=== PATIENT | female | born 1950 | race Caucasian/White ===

== ENCOUNTER 2020-05-29 12:29 | Inpatient (IN) | payer MEDICARE ==
[~2020-05-29] VITALS: Ht 177.8 cm; Wt 114.0 kg
[2020-05-29 13:25] LABS: Source, Urine Catheter
[2020-05-29 13:31] LABS: Appearance, Urine Clear (Clear); Blood, Urine 5+ (Neg); Color, Urine Yellow (P-Yellow); Glucose Qualitative, Urine Neg (Neg); Ketones, Urine 1+ (Neg); Leukocyte Esterase, Urine 1+ (Neg); Nitrite, Urine Neg (Neg); Protein, Urine 2+ (Neg); Specific Gravity, Urine 1.025 (1.003-1.022); Urobilinogen, Urine 1+ (Normal)
[2020-05-29 13:34] LABS: PCO2 Arterial 46.6 mmHg (35-45); PO2 Arterial 58.3 mmHg (80-100); pH Blood Arterial 7.33 (7.35-7.45)
[2020-05-29 13:37] LABS: Magnesium, Blood 3.4 mg/dL (1.6-2.4); Salicylate <1.7 mg/dL (2.8-20.0); Troponin I <0.015 ng/mL (0.000-0.040)
[2020-05-29 13:41] LABS: Alanine Aminotransfer (ALT/SGP 92 U/L (12-78); Albumin, Blood 3.1 g/dL (3.4-5.0); Albumin/Globulin Ratio 0.7 (0.8-1.8); Alk Phos 137 U/L (50-136); Anion Gap 10 mmol/L (6-16); Aspartate Aminotrans (AST/SGOT 329 U/L (12-37); Bilirubin, Total 0.8 mg/dL (0.1-1.0); Blood Urea Nitrogen 46 mg/dL (8-24); Bun/Creatinine Ratio 16.5 (12.0-20.0); CO2, Blood 20 mmol/L (21-32); Calcium, Blood 8.4 mg/dL (8.5-10.1); Chloride, Blood 100 mmol/L (98-108); Creatinine, Blood 2.78 mg/dL (0.40-1.00); Globulin, Blood 4.4 g/dL (2.2-4.0); Glomerular Filtration Rate 18 (60-); Glucose, Blood 121 mg/dL (70-99); Potassium, Blood 6.9 mmol/L (3.5-5.5); Sodium, Blood 130 mmol/L (136-145); Total Protein, Blood 7.5 g/dL (6.4-8.2)
[2020-05-29 13:42] LABS: Acetaminophen, Random <2.0 ug/mL (10.0-30.0)
[2020-05-29 13:49] LABS: Bilirubin, Urine 1+ (Neg)
[2020-05-29 13:52] LABS: Bacteria Mod /hpf; Squamous Epithelial Cells Few /hpf (Few)
[2020-05-29 14:11] LABS: BASOPHILS ABSOLUTE AUTO 0.09 K/mm3 (0.00-0.23); BASOPHILS PERCENT AUTO 1 % (0-2); EOSINOPHILS ABSOLUTE AUTO 0.01 K/mm3 (0.00-0.68); EOSINOPHILS PERCENT AUTO 0 % (0-6); Hematocrit 42.6 % (33.0-51.0); Hemoglobin 13.2 g/dL (11.5-16.0); IMMATURE GRAN ABSOLUTE AUTO 0.05 K/mm3 (0.00-0.10); IMMATURE GRAN PERCENT AUTO 0 % (0-1); LYMPHOCYTES ABSOLUTE AUTO 0.72 K/mm3 (0.84-5.20); LYMPHOCYTES PERCENT AUTO 6 % (21-46); MONOCYTES ABSOLUTE AUTO 1.07 K/mm3 (0.16-1.47); MONOCYTES PERCENT AUTO 8 % (4-13); Mean Corpuscular HGB 28.6 pg (26.0-34.0); Mean Corpuscular Volume 92 fL (80-100); Mean Platelet Volume 11.8 fL (9.1-12.4); NEUTROPHILS ABSOLUTE AUTO 11.27 K/mm3 (1.96-9.15); NEUTROPHILS PERCENT AUTO 85 % (41-73); Platelet Count 192 K/mm3 (150-400); RDW Coefficient Variation 13.8 % (11.7-14.2); RDW Standard Deviation 46.2 fL (35.1-46.3); Red Blood Cell Count 4.62 M/mm3 (3.80-5.20); White Blood Cell Count 13.21 K/mm3 (4.00-11.30)
[2020-05-29 14:14] LABS: U Amphetamine Screen Not Detected; U Barbituate Screen DETECTED; U Benzodiazapine Screen Not Detected; U Buprenorphine Screen Not Detected; U Cannabinoids Screen Not Detected; U Cocaine Screen Not Detected; U Methadone Screen Not Detected; U Methamphetamine Screen Not Detected; U Opiates Screen Not Detected; U Oxycodone Screen DETECTED; U Phencyclidine Screen Not Detected; U Propoxyphene Screen Not Detected
[2020-05-29 14:20] LABS: Calcium, Ionized (POC) 0.94 mmol/L (1.10-1.46); Chloride (POC) 100 mmol/L (98-108); Creatinine (POC) 2.9 mg/dL (0.6-1.0); Glucose (ISTAT POC) 124 mg/dL (70-99); Hemoglobin (POC) 14.3 g/dL (12.0-16.0); Potassium (POC) 6.1 mmol/L (3.5-5.5); Sodium (POC) 129 mmol/L (135-148); Total CO2 (POC) 25 mmol/L (21-32)
[2020-05-29] MEDS ORDERED: OXYC10TA19 PO (14:41)
[2020-05-29] MEDS ORDERED: ZOLPIDEM TARTRA10 MG PO (14:41)
[2020-05-29] MEDS ORDERED: ZANAFLEX4 M2 PO (14:41)
[2020-05-29] MEDS ORDERED: DULOXETINE HCL60 M1 PO (14:42)
[2020-05-29] MEDS ORDERED: MYSOLINE250 MG PO (14:42)
[2020-05-29] MEDS ORDERED: NEURONTIN300 MG PO (14:42)
[2020-05-29] MEDS ORDERED: OMEP20ER PO (14:42)
[2020-05-29] MEDS ORDERED: PROPRANOLOL HCL80 MG PO (14:42)
[2020-05-29] MEDS ORDERED: LIPITOR80 MG PO (14:43)
[2020-05-29] MEDS ORDERED: SYNTHROID50 MC1 PO (14:43)
--- NOTE | 2020-05-29 17:42 | NUR ---
Pt arrived from the ED via stretcher, able to awaken to verbal stimuli, but she speaks slowly, has difficulty expressing herself clearly, falls asleep mid-sentence and is confusing conversation around her with conversation directed at her. She is somnulent when not stimulated verbally or with patient care. IV fluids infusing wide open fromthe ED. She is c/o left thumb pain, xray noted concern for fracture. Bruising noted onthe left thumb and pt states pain is in the thumb and in the left wrist. She occasionally wakes up to use her phone, and is using both hands to textonher phone.
--- NOTE | 2020-05-29 17:45 | NUR ---
Cranial nerve assessment: PERRLA, EOM intact. Soft palate rises and uvula vibrates symmetrically. NO Lateral tongue deviation. Facial expressions symmetrical throughout. States no vision nor hearing deficit. Sensitive to soft touch both cheeks. Able to shrug shoulders symmetrically, per diem physical therapist equal bilaterally.
--- NOTE | 2020-05-29 18:15 | NUR ---
NOTIFIED PT THAT HER COVID TEST WAS NEGATIVE.
[2020-05-29] MEDS ORDERED: GABA300 PO (18:34)
--- NOTE | 2020-05-29 18:36 | NUR ---
Verified pt's home medication list, doses and directions with Pharmacist at [facility] in [place].
--- NOTE | 2020-05-29 18:59 | NUR ---
Call to [facility] regarding the xray of the left thumb, increasing swelling and ecchymosis. Also reported results of the CPK and uric acid. Orders received for IV fluids and labs. Consultation for Aliya Kumari called into answering service at this time.
[2020-05-30 03:54] LABS: BASOPHILS ABSOLUTE AUTO 0.06 K/mm3 (0.00-0.23); BASOPHILS PERCENT AUTO 1 % (0-2); EOSINOPHILS ABSOLUTE AUTO 0.18 K/mm3 (0.00-0.68); EOSINOPHILS PERCENT AUTO 2 % (0-6); Hematocrit 33.4 % (33.0-51.0); IMMATURE GRAN ABSOLUTE AUTO 0.02 K/mm3 (0.00-0.10); IMMATURE GRAN PERCENT AUTO 0 % (0-1); LYMPHOCYTES ABSOLUTE AUTO 0.78 K/mm3 (0.84-5.20); LYMPHOCYTES PERCENT AUTO 8 % (21-46); MONOCYTES ABSOLUTE AUTO 1.24 K/mm3 (0.16-1.47); MONOCYTES PERCENT AUTO 13 % (4-13); Mean Corpuscular HGB 28.2 pg (26.0-34.0); Mean Corpuscular HGB Conc 29.9 g/dL (31.5-36.5); Mean Corpuscular Volume 94 fL (80-100); Mean Platelet Volume 11.6 fL (9.1-12.4); NEUTROPHILS ABSOLUTE AUTO 6.97 K/mm3 (1.96-9.15); NEUTROPHILS PERCENT AUTO 76 % (41-73); Platelet Count 174 K/mm3 (150-400); RDW Standard Deviation 47.4 fL (35.1-46.3); Red Blood Cell Count 3.55 M/mm3 (3.80-5.20); White Blood Cell Count 9.25 K/mm3 (4.00-11.30)
[2020-05-30 04:35] LABS: Uric Acid, Blood 7.5 mg/dL (2.6-6.0)
[2020-05-30 04:36] LABS: Albumin, Blood 2.4 g/dL (3.4-5.0); Albumin/Globulin Ratio 0.7 (0.8-1.8); Bilirubin, Total 0.3 mg/dL (0.1-1.0); Bun/Creatinine Ratio 25.7 (12.0-20.0); Calcium, Blood 7.6 mg/dL (8.5-10.1); Creatinine, Blood 1.44 mg/dL (0.40-1.00); Globulin, Blood 3.3 g/dL (2.2-4.0); Potassium, Blood 4.3 mmol/L (3.5-5.5); Total Protein, Blood 5.7 g/dL (6.4-8.2)
--- NOTE | 2020-05-30 05:33 | NUR ---
SHIFT SUMMARY PT RESTED THROUGH NIGHT CONFUSED/DISORIENTED SOME ROOM AIR CREAT KINASE TRENDING DOWN KHANH VELAZQUEZ CALLED TO VIEW XRAY OF HAND, AND ORDERED TO WRAP THUMB IN ABDULAZIZ BANDAGE AND USE ICE PACKS TO HELP WITH SWELLING. MD TO SEE TODAY. NO C/O PAIN SBA TO BSC CALL LIGHT WITHIN REACH, BED IN LOWEST POSITION. WILL CONTINUE TO MONITOR.
--- NOTE | 2020-05-30 08:21 | NUR ---
The pt is able to state name, birthday, and current date correctly. Iasked where she is and she laughed and said she doesn't know. I explained that she is in the hospital, and she laughed and said that she knows that she is in the hospital, but "I don't know where...I don't know what hospital, I mean where in the hospital. We are still in [place], I mean, [place], correct?". She is able to state that she feels like her thoughts are muddled, and she is obviously having some difficulty expressing herself clearly. No garbled or slurred speech. She is sitting up eating breakfast, and IV fluids are infusing NS at 150cc/hour.
--- NOTE | 2020-05-30 08:45 | NUR ---
Dr. Hudson here to see the pt at this time.
--- NOTE | 2020-05-30 12:37 | NUR ---
Echocardiogram completed at this time. IV on left chest flushed, no evidence of infiltration. IV fluids restarted after pt's IV discontinued during bathroom activity.
--- NOTE | 2020-05-30 13:18 | NUR ---
NOTED new orders for CT from Dr. Kumari.
--- NOTE | 2020-05-30 13:42 | NUR ---
Echocardiogram performed by Stephanie Ya under my supervision.
--- NOTE | 2020-05-30 15:05 | NUR ---
IVF INFUSING LEFT CHEST IV SITE. NO S/S INFILTRATION. SMALL AMOUNT OF BRUISING NOTED AROUND THE INSERTION SITE.
--- NOTE | 2020-05-30 15:34 | NUR ---
Call to Dr. Hudson. The pt is still drowsy, but awakens to conversation and is able to tell me that she is having pain in her back, 8/10, and pain in her left thumb, 6/10. Echocardiogram done, CT of left thumb completed. Vital signs are stable, and pt is still receiving IV fluids at 150/hour. Plan per the hospitalist is to continue the fluids, but hold off on any pain medications until she is fully awake.
--- NOTE | 2020-05-30 15:46 | NUR ---
Telephone report given to Diana Gomez.
--- NOTE | 2020-05-30 19:12 | NUR ---
SHIFT SUMMARY PT IS AOX3 AND RESPONDS TO VERBAL STIMULI. PT TRANSFERRED TO UNIT FROM PCU AROUND 1530. PT DENIES PAIN, N/V, SOB THIS LUCY. PT IS STILL LETHARGIC, BUT ALERT AND SPEAKING. PT IS ONE PERSON ASSIST WITH FWW. NO ACUTE CHANGES SINCE ARRIVAL TO UNIT. PT IS IN BED, CALL LIGHT IN REACH, BED ALARM ON.
--- NOTE | 2020-05-31 11:32 | NUR ---
PHYSICIAN NOTIFICATION THIS RN CALLED DR. ORR AT 1100 FOR PT BP 191/98 AND PT C/O SOB. THIS RN RECEIVED ORDERS TO STOP THE NS RUNNING AT 150/HR AND GIVE AMLODIPINE 10 MG NOW. THIS RN WILL CONTINUE TO MONITOR PT STATUS.
[2020-05-31 11:35] LABS: Anion Gap 4 mmol/L (6-16); Blood Urea Nitrogen 8 mg/dL (8-24); Bun/Creatinine Ratio 13.4 (12.0-20.0); CO2, Blood 27 mmol/L (21-32); Calcium, Blood 7.9 mg/dL (8.5-10.1); Chloride, Blood 111 mmol/L (98-108); Glomerular Filtration Rate >60 (60-); Glucose, Blood 112 mg/dL (70-99); Potassium, Blood 3.9 mmol/L (3.5-5.5); Sodium, Blood 142 mmol/L (136-145)
--- NOTE | 2020-05-31 17:23 | NUR ---
DISCHARGE NOTE THIS RN REVIEWED PT DC INSTRUCTIONS AND MEDICATIONS WITH PT. THIS RN REMOVED BOTH PT IV'S AND ASSISTED PT INTO PAPER SCRUB CLOTHING AND SOCKS. PT VERBALIZED UNDERSTANDING OF DC INSTRUCTIONS. TRANSPORT BY [facility] ARRANGED BY CHEMICAL SPRAYER. PT DOES NOT HAVE PCP IN [place] AND INSTRUCTION TO ESTABLISH PCP IN [place] UPON ARRIVAL WAS GIVEN. PT BELONGINGS IN BELONGINGS BAG AND PT WHEELED DOWN TO ER ENTRANCE BY VIVIANA GILBERT TO [facility]. PT LEFT BUILDING AT 1726.
== END 2020-05-31 17:22 | disposition home or self-care (01) | DRG 682 ==
LOC: ER 12:29 → MEDS 15:07 → PCU 15:07 → MEDS 05-30 16:07
PROVIDERS: Emergency Medicine; Internal Medicine; Nurse Practitioner Acute Care; ADMIT Internal Medicine
DX: N17.9 Acute kidney failure, unspecified (principal); G92 Toxic encephalopathy; J96.01 Acute respiratory failure with hypoxia; M62.82 Rhabdomyolysis; R65.10 Systemic inflammatory response syndrome (SIRS) of non-infectious origin without acute organ dysfunction; Z20.828 Contact with and (suspected) exposure to other viral communicable diseases; E87.5 Hyperkalemia; T40.2X5A Adverse effect of other opioids, initial encounter; G40.909 Epilepsy, unspecified, not intractable, without status epilepticus; K21.9 Gastro-esophageal reflux disease without esophagitis; E66.01 Morbid (severe) obesity due to excess calories; G25.81 Restless legs syndrome; I10 Essential (primary) hypertension; J98.01 Acute bronchospasm; E78.5 Hyperlipidemia, unspecified; E03.9 Hypothyroidism, unspecified; M54.5 Low back pain; R74.01 Elevation of levels of liver transaminase levels; S62.512A Displaced fracture of proximal phalanx of left thumb, initial encounter for closed fracture; W19.XXXA Unspecified fall, initial encounter; Z79.899 Other long term (current) drug therapy; Z79.891 Long term (current) use of opiate analgesic; Z88.0 Allergy status to penicillin; Z88.8 Allergy status to other drugs, medicaments and biological substances
CPT/HCPCS: 36415; 36600; 70450; 71045; 73130; 73200; 76377; 80047; 80048; 80053; 81001; 82550; 82803; 82947; 83735; 84100; 84132; 84146; 84484; 84550; 85014; 85025; 87086; 93005; 93010; 93306; 94644; 96361; 96365; 96375; 99285-25; A9270-GY; G0480; J0610; J1815; J7030; U0003